=== PATIENT | female | born 1955 | race Caucasian/White ===

== ENCOUNTER 2023-12-11 09:52 | Emergency (ER) | payer MEDICARE, SELFPAY ==
[2023-12-11 10:20] VITALS: BP 152/69; PULSE 88; RESP 20; TEMP 36.6; O2SAT 97; BMI 24.0
--- NOTE | 2023-12-11 10:30 | ED_ITS ---
Discharge Plan Disposition Patient Disposition: Home, Self-Care Condition: Good Prescriptions Prescriptions: New prednisone 10 mg tablet 10 mg PO DIRECTED 9 Days Qty: 21 0RF Rx Instructions: Take 4 tablets daily for 3 days, then take 2 tablets daily for 3 days, then take 1 tablet daily for 3 days, then stop. acyclovir 800 mg tablet 800 mg PO 5XDAY 7 Days Qty: 35 0RF cephalexin 500 mg capsule 500 mg PO QID Qty: 40 0RF Referrals Follow up/Referrals: Provider,Referral, MD [Primary Care Provider] - See instructions Activity Restrictions/Add. Instructions Additional Instructions/Restrictions: Take the medications as directed. Follow up with a primary care physician. We will give you a list of physcians that are taking new patients. Follow up with ophthalmology. I recommend following up at [facility]. GO TO THE ER FOR ANY WORSENING SYMPTOMS Clinical Impressions Clinical Impression: Lesion of right upper eyelid, Edema of right eyelid Instructions Patient Instructions: Prednisone, Acyclovir, Cephalexin Discharge ED Provider: Jose Miguel Chen [facility] General Stated complaint: Right eye lid swelling, itch, pain headache Mode of Arrival: Ambulatory Source of Information: Patient Limitations: No Limitations Time Seen by Provider: 12/11/23 10:29 Description of Symptoms (Recalled from Triage Doc. by RN): PATIENT C/O SWELLING AND REDNESS TO RIGHT EYELID X 6 DAYS. SHE REPORTS ITCHING AND PAIN TO AREA AND ALSO PAIN DOWN RIGHT SIDE OF FACE AND HEADACHE HEENT Symptoms (Recalled from RN notes): Yes Resp Symptoms (Recalled from RN notes): No Skin Symptoms (Recalled from RN notes): No MS Symptoms (Recalled from RN notes): No Functional Status (Recalled from RN notes): WNL History of Present Illness Provider Complaint: She states that for the past 6 days she has had swelling, pain, itching and redness of the right side of her forehead and on her right eyelid. She denies eye irritation or pain, other than the swelling of her eye lid. She denies any known exposure to any allergens. She has had shingles on her body (not her face) in the past, but she states that they did not feel like her symptoms she is having now. She denies any vision changes. She denies any ear pain, tinnitus, or change in her hearing. Related Data Previous Rx's Medication Instructions Recorded acyclovir 800 mg tablet 800 mg PO 5XDAY 7 days #35 tabs 12/11/23 cephalexin 500 mg capsule 500 mg PO QID #40 caps 12/11/23 prednisone 10 mg tablet 10 mg PO DIRECTED 9 days #21 12/11/23 tabs Allergies Allergy/AdvReac Type Severity Reaction Status Date / Time No Known Allergies Allergy Verified 12/11/23 10:27 Worker's Comp Is this a Worker's Comp case?: No PFSH [facility] Disclaimer: The information contained in this section may have been updated after the patient was seen, as this information can be updated by other users. Medical History (Updated 12/11/23 @ 11:05 by Jose Miguel Chen APRN) Migraine Surgical History (Updated 12/11/23 @ 10:27 by Ling Montes RN) History of hysterectomy Social History Smoking Status: Never smoker alcohol intake: never current occupational status: retired Travel in the last 8 weeks: None ROS Obtained: Yes All systems reviewed & no additional complaints except as documented Constitutional Constitutional: Denies chills and Denies fever(s) Eyes Eyes: Reports as per HPI and Denies eye discharge ENT Ears, Nose, Mouth, and Throat: Denies dizziness, Denies otalgia and Denies sore throat Cardiovascular Cardiovascular: Denies chest pain Respiratory Respiratory: Denies shortness of breath, Denies chest congestion, Denies cough, Denies stridor and Denies wheezing Gastrointestinal Gastrointestingal: Denies nausea or vomiting Musculoskeletal Musculoskeletal: Reports system reviewed and no additional complaints, except as documented and Denies arthralgias Integumentary/Breasts Skin/Breast: Denies rash Neurologic Neurologic: Denies dizziness and Denies paresthesias Allergic/Immunologic Allergic/Immunologic: Denies wheezing Physical Exam General General appearance: alert and in no apparent distress Head Head exam: atraumatic, normocephalic and normal inspection Eye Eye exam: Present PERRL and EOMI Expanded Eye Exam Eyelids: left: normal inspection and right: swelling eyelids Pupils: Left: size (2), Right: size (2) and Bilateral: regular, round and reactive Sclera/Conjunctival: bilateral: normal inspection ENT ENT exam: Present normal exam, normal oropharynx, mucous membranes moist, TM's normal bilaterally and normal external ear exam Neck Neck exam: Present normal inspection, full ROM and trachea midline; Absent meningismus or lymphadenopathy Chest Chest inspection: Present normal inspection and symmetric chest wall rise; Absent tenderness Respiratory Respiratory exam: Present normal lung sounds bilaterally; Absent respiratory distress Cardiovascular Cardiovascular exam: Present regular rate and normal rhythm; Absent JVD Abdominal Exam Abdominal exam: Present soft and normal bowel sounds; Absent distention, tenderness or guarding Extremities Exam Extremities exam: Present normal inspection, full ROM and normal capillary refill; Absent calf tenderness Back Exam Back exam: Present normal inspection; Absent tenderness Neurological Exam Neurological exam: Present alert and oriented X3 Psychiatric Psychiatric exam: Present normal affect and normal mood Skin Skin exam: Present rash (there is a crusted lesion just above her right eye lid, no vesicles, no drainage noted, no induration. ) Lymphatic Lymphatic Findings: no adenopathy Medical Decision Making Medical Records Medical records reviewed: No I reviewed the patient's medical records. Carl Inquiry Pt receiving controlled substance: No Vital Signs: 12/11/23 10:20 Temperature 97.9 F Temperature Source Oral Pulse Rate [Right Brachial] 88 Respiratory Rate 20 Blood Pressure [Right Arm] 152/69 H Blood Pressure Mean [Right Arm] 96 Blood Pressure Source [Right Arm] Automatic Cuff Blood Pressure Position [Right Arm] Sitting 02 Sat by Pulse Oximetry 97 Oxygen Delivery Method Room Air
[2023-12-11 11:25] VITALS: BP 152/69; PULSE 88; RESP 20; TEMP 36.6; O2SAT 97
[2023-12-19 12:18] LABS: Miscellaneous Test SCANNED IMAGE
== END 2023-12-11 11:30 | disposition home or self-care (01) ==
PROVIDERS: Emergency Provider Nurse Practitioner Family
DX: H02.843 Edema of right eye, unspecified eyelid (principal); B96.89 Other specified bacterial agents as the cause of diseases classified elsewhere; R78.81 Bacteremia; H02.89 Other specified disorders of eyelid
CPT/HCPCS: 87070; 87077; 87186; 87205; 99204; 99212; G0463